=== PATIENT | female | born 1940 | race African-American/Black ===

== ENCOUNTER 2021-10-07 12:15 | Emergency (ER) | payer MEDICARE, MEDICAID ==
[~2021-10-07] VITALS: Ht 157.5 cm; Wt 59.0 kg
[2021-10-07] MEDS ORDERED: ALBUTEROL (0.083%) 2.5MG/3ML NEB HHN STA (12:34)
[2021-10-07] MEDS ORDERED: IPRATROPIUM BROMIDE (0.02%) 0.5MG/2.5ML NEB HHN STA (12:34)
[2021-10-07 13:38] LABS: INR 1.1; PROTHROMBIN TIME 11.4 sec (9.6-11.0)
[2021-10-07 13:39] LABS: HEMATOCRIT. 28.6 % (36.0-48.0); HEMOGLOBIN. 9.3 g/dL (12.0-16.0); MEAN CORPUSCULAR HEMOGLOBIN 25.7 pg (28.0-32.0); MEAN CORPUSCULAR VOLUME 79.2 fL (81.0-99.0); MEAN PLATELET VOLUME 7.3 fl (7.4-10.4); PLATELET 118 x1000/uL (130-400); RED BLOOD CELL COUNT 3.61 mill/uL (4.2-5.4); RED CELL DISTRIBUTION WIDTH 17.9 % (11.6-14.6)
[2021-10-07] MEDS ORDERED: AZITHROMYCIN 500MG/250ML 250 ML IV ONE (14:00)
[2021-10-07] MEDS ORDERED: CEFTRIAXONE 1 G PREMIX 50 ML IV ONE (14:00)
[2021-10-07 14:05] LABS: CHLORIDE 104 mEq/L (98-107)
[2021-10-07 14:09] LABS: BG BASE EXCESS -3.7 mmol/L (-2.0-2.0); BG CARBOXYHEMOGLOBIN 1.1 % (0.5-1.5); BG DEOXYHEMOGLOBIN 9.8 % (0.0-5.0); BG FRACTION INSPIRED OXYGEN 36; BG HCO3 ACT 20.6 mmol/L (22.0-26.0); BG METHEMOGLOBIN 0.2 % (0.0-1.5); BG OXYGEN SATURATION 90.1 % (92.0-98.5); BG OXYHEMOGLOBIN 88.9 % (94.0-97.0); BG PCO2 34.6 mmHg (35.0-45.0); BG PH 7.393 (7.350-7.450); BG PO2 61.5 mmHg (75.0-100.0); BG SAMPLE SITE RIGHT RADIAL; BG TOTAL HEMOGLOBIN 10.2 g/dL (12.0-18.0); BG VENT MODE NASAL CANNULA
[2021-10-07] MEDS ORDERED: FUROSEMIDE 20MG/2ML VIAL IVP ONE (15:00)
[2021-10-07] MEDS ORDERED: IOHEXOL-350 100 ML BOTTLE ONE (15:21)
[2021-10-07 15:30] LABS: CLARITY URINE CLEAR (CLEAR); COLOR URINE YELLOW (YELLOW); KETONES URINE NEGATIVE (NEGATIVE); LEUKOCYTE ESTERASE URINE NEGATIVE (NEGATIVE); NITRITE URINE NEGATIVE (NEGATIVE); OCCULT BLOOD URINE NEGATIVE (NEGATIVE); PH URINE 5.5 (4.5-8.0); PROTEIN URINE 1+ (NEGATIVE); SPECIFIC GRAVITY URINE 1.022 (1.005-1.030)
[2021-10-07 15:32] LABS: PLATELET ESTIMATE DECREASED
[2021-10-07 20:00] VITALS: BP 102/52
== END 2021-10-07 20:34 | disposition short-term general hospital (02) ==
LOC: ER 12:15 → EDBEDREQ 19:41 → ER 20:34 → CANBEDREQ 21:14
DX: J96.01 Acute respiratory failure with hypoxia (principal); J18.9 Pneumonia, unspecified organism; C91.10 Chronic lymphocytic leukemia of B-cell type not having achieved remission; D63.0 Anemia in neoplastic disease; E87.8 Other disorders of electrolyte and fluid balance, not elsewhere classified; I11.0 Hypertensive heart disease with heart failure; I50.40 Unspecified combined systolic (congestive) and diastolic (congestive) heart failure; Z20.822 Contact with and (suspected) exposure to COVID-19; Z86.73 Personal history of transient ischemic attack (TIA), and cerebral infarction without residual deficits
CPT/HCPCS: 36415; 36600; 71045; 71275; 80053; 81003; 82375; 82805; 83605; 83690; 83880; 84145; 84484; 85025; 85379; 85610; 87040; 87086; 87426; 93005; 94640; 96365; 96368; 99291; J0456; J0696; J1940; Q9967; Z7610